=== PATIENT | female | born 1995 | race African-American/Black ===

== ENCOUNTER 2017-01-25 16:36 | Emergency (ER) | payer OTHER ==
[~2017-01-25] VITALS: Ht 165.1 cm; Wt 99.8 kg
[~2017-01-25 16:36] MED LIST: AFRIN PUMPMIST15 ML NAS; PREDNISONE 20MG20 MG PO; TESSALON PERLE100 MG PO
[2017-01-25 16:43] VITALS: BP 126/86
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
== END 2017-01-25 17:47 ==
LOC: ERH 16:36
DX: S13.4XXA Sprain of ligaments of cervical spine, initial encounter (principal); V49.40XA Driver injured in collision with unspecified motor vehicles in traffic accident, initial encounter; Y92.9 Unspecified place or not applicable

== ENCOUNTER 2018-04-25 07:30 | Emergency (ER) | payer OTHER ==
[~2018-04-25] VITALS: Ht 165.1 cm; Wt 95.3 kg
[2018-04-25 07:33] VITALS: BP 135/80
--- NOTE | 2018-04-25 07:58 | ED GENERAL ADULT ---
See Addendum History of Present Illness General Chief Complaint: Upper Respiratory Sx/Fever Stated Complaint: URI X 1DAY Source: patient Exam Limitations: no limitations Vital Signs & Intake/Output Vital Signs & Intake/Output Vital Signs Date Time Temp Pulse Resp B/P B/P Pulse O2 O2 Flow FiO2 Mean Ox Delivery Rate 04/25 0733 98.6 82 18 135/80 98 Room Air Allergies Coded Allergies: NO KNOWN ALLERGIES (10/11/14) Reconcile Medications Benzonatate (Tessalon Perle) 100 MG CAPSULE 1 CAP PO TID PRN COUGH OXYMETAZOLINE HCL (Afrin) 0.05 % SPRAY 2 SPRAY NIURKA BID congestion Prednisone 20 MG TABLET 1 TAB PO BID BRONCHOSPASM Triage Note: 22 YEAR OLD FEMALE COMPLAINS OF COUGH AND SOB X 1 DAY, HAS NOT TAKEN ANYTHING FOR THE COUGH, HAS HISTORY OF ASTHMA BUT STATES THAT SHE HAS NO INHALERS. O2 SAT 98 % ON RA AND PT AFEBRILE Triage Nurses Notes Reviewed? yes : No Patient currently breastfeeds: No HPI: Patient is a 22-year-old female who is presenting to the emergency department with complains of a worsening cough over the past 3 days. Patient states she woke up this morning had a vomit consisting of clear/white material which prompted her to come to the emergency department. Patient states she has been having a productive cough, consisting of white/clear phlegm along with not getting a full breath. Patient endorses subjective fever and congestion with green/clear nasal discharge. Patient denies sick contacts, recent travel, history of allergies, history of smoking. 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 Past History Travel History Traveled to [place] past 21 day No Medical History Any Pertinent Medical History? 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 No Review of Systems Review of Systems Constitutional: Reports: fever. Denies: chills, diaphoresis. EENTM: Reports: nasal congestion. Respiratory: Reports: cough, sputum production. Cardiovascular: Denies: chest pain, palpitations. GI: Reports: vomiting. Denies: abdominal pain. Physical Exam Physical Exam General Appearance: well developed/nourished, no apparent distress, obese Eyes: Bilateral: PERRL, EOMI. Ears, Nose, Throat: Nasal erythema Neck: normal inspection, supple, full range of motion Respiratory: normal breath sounds, lungs clear Cardiovascular: regular rate/rhythm Peripheral Pulses: 4+ dorsalis pedis (R), 4+ dorsalis pedis (L) Gastrointestinal: normal bowel sounds, soft, non-tender Core Measures ACS in differential dx? No CVA/TIA Diagnosis: No Sepsis Present: No Sepsis Focused Exam Completed? 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 We will provide patient with symptomatic treatment of decongestant cough medication and asthma inhaler. Will advise patient to follow-up with her PCP. Initial ED EKG: none Departure Departure Disposition: HOME OR SELF CARE Condition: Stable Clinical Impression Primary Impression: Common cold virus Secondary Impressions: Seasonal allergies Referrals: Alise NÚÑEZ,Calderon Karimi (PCP/Family) Departure Forms: Customer Survey General Discharge Information Prescriptions: Current Visit Scripts Albuterol Sulfate (Proair Hfa) 2 PUF INH Q4-6 PRN PRN asthma #1 INHAL Phenylephrine/Dm/Acetaminop/GG (Sudafed PE Pressure+Pain+Cold) 2 TAB PO Q6 PRN COLD #30 TAB Comments Please take medications as directed. Please follow-up with PCP for allergies and asthma. If your symptoms worsen please come back to the emergency department. Please note that there might be incidental findings in your evaluation that are unrelated to the current emergency department visit. Please notify your primary care doctor about this emergency department visit in order to obtain and review all of the testing performed so that these incidental findings can be monitored as needed. If you had an x-ray performed, please understand that some fractures or other findings may not be seen on the initial set of x-rays. If your symptoms persist you might need a repeat set of x-rays to check for such a fracture. If you had a laceration evaluated, please understand that foreign bodies such as glass or wood may not be visible to the naked eye or on plain x-rays. If the wound becomes red, swollen, increasingly more painful or if there is any drainage from the wound, please have it reevaluated by a physician for the possibility of a retained foreign body. If you're unable to follow up as outlined in the discharge instructions please return to the emergency department. Thank you for choosing the [facility] Emergency Department for your care. It was a pleasure to serve you today. Critical Care Note Critical Care Note Critical Care Time: non-applicable
[2018-04-25] MEDS ORDERED: PROAIR HFA8.5 GM INH (08:10)
[2018-04-25] MEDS ORDERED: SUDAFED PE PRE1 EAC3 PO (08:10)
== END 2018-04-25 08:17 ==
LOC: ERH 07:30
DX: J00 Acute nasopharyngitis [common cold] (principal); J30.2 Other seasonal allergic rhinitis